=== PATIENT | male | born 1975 | race Two or more races ===

== ENCOUNTER 2022-07-29 20:41 | Emergency (ER) | payer OTHER ==
[~2022-07-29] VITALS: Ht 170.2 cm; Wt 72.6 kg
[2022-07-31] MEDS ORDERED: ABATINEX680 MG (14:02)
== END 2022-07-30 01:46 | disposition home or self-care (01) ==
LOC: ER 20:41
DX: R19.7 Diarrhea, unspecified (principal); R11.10 Vomiting, unspecified; J45.909 Unspecified asthma, uncomplicated; I10 Essential (primary) hypertension; I51.7 Cardiomegaly; K44.9 Diaphragmatic hernia without obstruction or gangrene; Z20.822 Contact with and (suspected) exposure to COVID-19

== ENCOUNTER 2022-07-30 23:34 | Inpatient (IN) | payer OTHER ==
[~2022-07-30] VITALS: Ht 170.2 cm; Wt 88.5 kg
--- NOTE | 2022-07-30 23:54 | NUR ---
SE RECIBE PTE MASCULINO DE 46 ANOS DE EDAD, ALERTA Y ORIENTADO X3, EN COMPANIA DE DALY ESPOSA. PTE REFIERE QUE EL CINDY DE VASQUEZ ESTUVO AQUI EN PATI DE EMERGENCIAS POR DIARREAS Y DOLOR ABDOMINAL Y QUE LO ATENDIO LA MOISÉS.JIMENEZ. EL PTE REFIERE QUE VASQUEZ SALIO ALIVIADO ZARINA HOY A LAS 4PM APROXIMADAMENTE VOLVIO A TENER DOS EPISODIOS DE DIARREA Y DOLOR ABDOMINAL, POR ESO DECIDIO VENIR NUEVAMENTE. S/V ESTABLES, SE UBICA.
--- NOTE | 2022-07-31 01:12 | NUR ---
SE LE ORIENTA A PACIENTE SOBRE LAS ORDENES MEDICAS, REFIERE ENTENDER LAS MISMAS. SE CANALIZA Y SE LE COLOCA LOS IVF'S, SE LE JODY LAS MUETRAS, SE ADMINISTRAN LOS MEDICAMENTOS Y SE NOTIFICA CT ABDOMINAL MINESH LAS ORDENES MEDICAS.
--- NOTE | 2022-07-31 05:28 | NUR ---
RN SMALL ORIENTA A PTE ORIENTA A PTE SOBRE TRATAMIENTO E INSTRUCCIONES A SEGUIR, EL REFIERE ENTENDER. AL MOMENTO DE INSERTAR NGT PTE REHUSA EL TRATAMIENTO, SE ORIENTA SOBRE IMPORTANCIA ZARINA EL REFIERE REHUSAR A MENOS QUE LO DUERMAN.
--- NOTE | 2022-07-31 08:47 | NUR ---
SE RECIBE PTE EN EL AREA DE OBSERVACION EN CAMA CON BARANDAS ELEVADA Y TIMBRE ACCESIBLE, PTE ALETRA Y ORIENTADO POR 3, NO PRESENTA DOLOR AL MOMENTO, SE OBSERVA VENOPUNCION PATENTE Y HEYDI DE EDEMA PTE SE MANTIENE EN OBSERVACION Y BAJO TRATAMIENTO, PTE EN ESPERA DEL CONSULTOR
[2022-07-31] MEDS ORDERED: ABATINEX680 MG (14:02)
== END 2022-08-02 14:09 | disposition home or self-care (01) | DRG 389 ==
LOC: ER 23:34 → SEC-K 07-31 12:28 → MEDJ 08-01 15:45
PROVIDERS: ADMIT Specialist; ATTEND Specialist
PROC: BW21ZZZ Computerized Tomography (CT Scan) of Abdomen and Pelvis (ICD-10-PCS; principal; 2022-07-31)
DX: K56.609 Unspecified intestinal obstruction, unspecified as to partial versus complete obstruction (principal); A09 Infectious gastroenteritis and colitis, unspecified; T78.1XXA Other adverse food reactions, not elsewhere classified, initial encounter; E86.0 Dehydration; R14.0 Abdominal distension (gaseous); X58.XXXA Exposure to other specified factors, initial encounter